=== PATIENT | male | born 1985 | race Caucasian/White ===

== ENCOUNTER 2022-03-22 18:21 | Emergency (ER) | payer MEDICAID ==
[~2022-03-22] VITALS: Ht 180.3 cm; Wt 99.8 kg
[2022-03-22 18:34] VITALS: BP 131/91
--- NOTE | 2022-03-22 19:23 | NUR ---
REGIS VÁSQUEZ TO ER CHAIR A
[2022-03-22] MEDS ORDERED: IBUP-2213 PO (20:09)
[2022-03-22] MEDS ORDERED: ACET-10509 PO (20:09)
[2022-03-22] MEDS ORDERED: BENZ200C4 PO (20:09)
[2022-03-22] MEDS ORDERED: DEXT1LOZ11 MM (20:09)
[2022-03-22 20:23] VITALS: BP 134/82
--- NOTE | 2022-03-22 20:23 | NUR ---
Patient discharged with v/s stable. Written and verbal after care instructions given and explained. Patient alert, oriented and verbalized understanding of instructions. Ambulatory with steady gait. All questions addressed prior to discharge. ID band removed. Patient advised to follow up with PMD. Rx of TYLENOL, BENZONATATE, CEPACOL, IBUPROFEN given. Patient educated on indication of medication including possible reaction and side effects. Opportunity to ask questions provided and answered.
== END 2022-03-22 20:23 | disposition home or self-care (01) ==
LOC: MED 18:21
DX: J06.9 Acute upper respiratory infection, unspecified (principal); Z20.822 Contact with and (suspected) exposure to COVID-19; J45.909 Unspecified asthma, uncomplicated; I10 Essential (primary) hypertension; Z79.899 Other long term (current) drug therapy; Z98.890 Other specified postprocedural states
CPT/HCPCS: 71045; 99284